=== PATIENT | female | born 1980 ===

== ENCOUNTER 2016-08-07 15:08 | Emergency (ER) | payer OTHER ==
[2016-08-07 15:40] VITALS: BP 126/72
--- NOTE | 2016-08-07 16:00 | UC ---
Throat Pain/Nasal Thien HPI - HPI Summary HPI Summary: 35 y/o female presents to urgent care c/o sore throat since yesterday. She states her 2 children have been Dx with strep this week. She also states she has postnasal drip. Denies fever, NICHOLSON, ear pain, SOB, cough, chest pain, N/V/D. - History of Current Complaint Chief Complaint: UCRespiratory Stated Complaint: SORE THROAT, STREP? Time Seen by Provider: 08/07/16 15:37 Hx Obtained From: Patient Hx Last Menstrual Period: 08/22/2012 ?: No Onset/Duration: Sudden Onset, Lasting Days, Still Present Severity: Mild Pain Intensity: 1 Pain Scale Used: 0-10 Numeric Cough: Other: - post nasal drip Associated Signs & Symptoms: Positive: Dysphagia. Negative: Sinus Discomfort, Nasal Discharge, Fever, Vomiting, Rash - Epiglottits Risk Factors Epiglottis Risk Factors: Negative - Allergies/Home Medications Allergies/Adverse Reactions: Allergies Allergy/AdvReac Type Severity Reaction Status Date / Time Penicillins Allergy Hives Verified 09/03/12 15:00 Home Medications: Home Medications Norgestimate-Ethinyl Estradiol [Sprintec 28 0.25-35 mg-Mcg] 1 tab PO 08/07/16 [ History] PMH/Surg Hx/FS Hx/Imm Hx Previously Healthy: Yes - Surgical History Surgical History: Yes Surgery Procedure, Year, and Place: 2 c-sections - Family History Known Family History: Positive: Hypertension - Social History Occupation: Employed Full-time Lives: With Family Alcohol Use: Occasionally Substance Use Type: None Smoking Status (MU): Never Smoked Tobacco Review of Systems Constitutional: Negative Skin: Negative Eyes: Negative ENT: Sore Throat Respiratory: Negative Cardiovascular: Negative Gastrointestinal: Negative Genitourinary: Negative Motor: Negative Neurovascular: Negative Musculoskeletal: Negative Neurological: Negative Psychological: Negative All Other Systems Reviewed And Are Negative: Yes Physical Exam Triage Information Reviewed: Yes Appearance: Well-Appearing, No Pain Distress, Well-Nourished Vital Signs: Initial Vital Signs Temp 98.9 F 08/07/16 15:37 Pulse 74 08/07/16 15:37 Resp 18 08/07/16 15:37 BP 126/72 08/07/16 15:37 Pulse Ox 100 08/07/16 15:37 Vital Signs Reviewed: Yes Eye Exam: Normal Eyes: Positive: Conjunctiva Clear - PERRLA, EOMI ENT: Positive: Hearing grossly normal, Pharyngeal erythema - B/L no exudate observed, TMs normal - B/L, Tonsillar swelling. Negative: Nasal congestion, Nasal drainage, Tonsillar exudate Dental Exam: Normal Neck exam: Normal Neck: Positive: Supple, Nontender, No Lymphadenopathy Respiratory Exam: Normal Respiratory: Positive: Chest non-tender, Lungs clear, Normal breath sounds Cardiovascular Exam: Normal Cardiovascular: Positive: RRR, No Murmur, Pulses Normal Abdominal Exam: Normal Abdomen Description: Positive: Nontender, No Organomegaly, Soft Bowel Sounds: Positive: Present Musculoskeletal Exam: Normal Musculoskeletal: Positive: Strength Intact, ROM Intact, No Edema Neurological Exam: Normal Neurological: Positive: Alert - and oriented X3 Psychological Exam: Normal Skin Exam: Normal Throat Pain/Nasal Course/Dx - Course Course Of Treatment: Sore throat x 2 days w/ exposure to strep: Hx obtained. PE abnormal findings: ENT: Positive: Hearing grossly normal, Pharyngeal erythema - B/L no exudate observed, TMs normal - B/L, Tonsillar swelling. Negative: Nasal congestion, Nasal drainage, Tonsillar exudate. Rapid strep ordered. Result: negative Pt Rx Ibuprofen 600mg PO prn to alleviate symptoms. Pt advised if symptoms worsen to return to the urgent care of f/u with PCP. Pt understood and agreed. - Differential Dx/Diagnosis Differential Diagnosis/HQI/PQRI: Laryngitis, Mononucleosis, Otitis Media, Peritonsillar Abscess, Pharyngitis, URI Provider Diagnoses: Acute pharyngitis Discharge - Discharge Plan Condition: Stable Disposition: HOME Prescriptions: Ibuprofen TAB* [Motrin TAB* 600 MG] 600 mg PO Q6H PRN #20 tab PRN Reason: Sore Throat Patient Education Materials: Pharyngitis (ED) Referrals: Rigo Heredia MD [Primary Care Provider] - Additional Instructions: Please take medications as instructed and finish the full course of treatment to avoid recurrent infection. If you do not improve or if symptoms worsen after the course of antibiotics, you should either follow up with your PCP or return to the urgent care for further evaluation and treatment.
== END 2016-08-07 16:33 | disposition home or self-care (01) ==
LOC: UCEAST 15:08
DX: J02.9 Acute pharyngitis, unspecified (principal); R09.82 Postnasal drip; Z88.0 Allergy status to penicillin
CPT/HCPCS: 87651; 99202; G0463